=== PATIENT | female | born 1980 | race Caucasian/White ===

== ENCOUNTER → 2025-02-14 | Outpatient (CLI) | payer OTHER ==
--- NOTE | 2025-02-14 10:14 | HMCIMG ---
BILATERAL BREAST ULTRASOUND: CLINICAL HISTORY: Unspecified lump on breast. Prior mammogram from 04/03/2024 is available. Finding: Real-time examination of the both breasts demonstrates homogeneous echotexture throughout both the breasts without evidence of focal solid or cystic masses. IMPRESSION: No mass or cyst seen. FINAL ASSESSMENT: ACR: BI-RAD - 1. Negative Mammogram.
--- NOTE | 2025-02-14 10:16 | HMCIMG ---
DIGITAL bilateral breast DIAGNOSTIC MAMMOGRAM Technique: The digital mammographic examination of both breasts breasts in craniocaudal, mediolateral oblique views along with CAD was obtained. Ultrasound of both breasts were also obtained. History: This is a 44 years year-old female , para Ab . Patient noticed slight dimple in the left subareolar region. Patient has no family history of breast cancer. Patient has no complaint Reference:Prior mammogram from 04/03/2024 and 12/30/2022 are available.. Breast composition: Breast composition A: The breasts are almost entirely fatty. Finding: The digital mammographic examination of both breasts in craniocaudal and mediolateral oblique view along with CAD demonstrates to have involutional fatty changes.. Ultrasound demonstrate no lesion seen. There is no evidence of any dendritic mass, cluster microcalcification or architectural distortion. The retromammary fat appears to be normal. IMPRESSION: Unchanged from prior mammography. NO RADIOGRAPHIC EVIDENCE OF MALIGNANT CHANGES. WE WOULD RECOMMEND ANNUAL FOLLOW UP WITH TOMOSYNTHESIS UNLESS OTHERWISE CLINICALLY INDICATED. ACR code is 1. NOTE: IF A WORK-UP OF THIS PATIENT LEADS TO A BIOPSY, PLEASE FORWARD A COPY OF THE PATHOLOGY REPORT TO OUR OFFICE REQUIRED BY [employer] NOVEMBER 29, 1993. A NEGATIVE MAMMOGRAM SHOULD NOT PRECLUDE BIOPSY OF A CLINICALLY PALPABLE SUSPICIOUS MASS, 10% OF BREAST CANCERS ARE MAMMOGRAPHICALLY OCCULT. THIS MAMMOGRAPHY FACILITY IS FULLY ACCREDITED BY THE [employer]OD AND DRUG [employer]MIN[employer]RATION (FDA). THANK YOU FOR THIS REFERRAL.
== END | disposition home or self-care (01) ==
LOC: RAH 08:45
PROVIDERS: ATTEND Family Medicine
DX: R92.313 Mammographic fatty tissue density, bilateral breasts (principal); N63.0 Unspecified lump in unspecified breast; N63.20 Unspecified lump in the left breast, unspecified quadrant; N63.10 Unspecified lump in the right breast, unspecified quadrant
CPT/HCPCS: 77066